=== PATIENT | female | born 1955 | race African-American/Black ===

== ENCOUNTER 2020-11-09 09:05 | Outpatient (CLI) | payer MEDICARE ==
--- NOTE | 2020-11-09 11:34 | BD ---
BONE DENSITOMETRY USING DEXA: HISTORY: Postmenopausal screening for osteoporosis. FINDINGS: Lumbar Spine: BMD (g/cm2) L1 1.075 T-Score: 0.8 Z-Score: 1.7 L2 1.064 T-Score: 0.3 Z-Score: 1.4 L3 0.996 T-Score: -0.8 Z-Score: 0.3 L4 0.999 T-Score: -0.6 Z-Score: 0.6 L1-L4 1.029 T-Score: -0.2 Z-Score: 0.9 Femoral Neck: 0.661 T-Score: -1.7 Z-Score: -0.7 Total Femur: 0.890 T-Score: -0.4 Z-Score: 0.1 The 10-year fracture risk for a major osteoporotic fracture is 3.9% and for a hip fracture is 0.4%. Impression: Osteopenia. POS: AH
--- NOTE | 2020-12-07 16:10 | MMO ---
Bilateral MAMMO Bilat Screen [facility]. CLINICAL HISTORY: Patient is 65 years old and is seen for screening. The patient has the following family history of breast cancer: aunt, malignant (generic). The patient has no personal history of cancer. VIEWS: The views performed were: bilateral craniocaudal with tomosynthesis and bilateral mediolateral oblique with tomosynthesis. FILMS COMPARED: No prior imaging studies are available for comparison. This study has been interpreted with the assistance of computer-aided detection. MAMMOGRAM FINDINGS: There are scattered fibroglandular densities. There are no suspicious masses, suspicious calcifications, or new areas of architectural distortion. IMPRESSION: THERE IS NO MAMMOGRAPHIC EVIDENCE OF MALIGNANCY. A ROUTINE FOLLOW-UP MAMMOGRAM IN 1 YEAR IS RECOMMENDED. THE RESULTS OF THIS EXAM WERE SENT TO THE PATIENT. ACR BI-RADS Category 1 - Negative MAMMOGRAPHY NOTE: 1. A negative mammogram report should not delay a biopsy if a dominant of clinically suspicious mass is present. 2. Approximately 10% to 15% of breast cancers are not detected by mammography. 3. Adenosis and dense breasts may obscure an underlying neoplasm. Reported by: ERIN SAMSON MD Electonically Signed: [id number]
== END 2020-11-09 09:06 | disposition home or self-care (01) ==
LOC: BICMAMMO 09:05
PROVIDERS: ATTEND Family Medicine
DX: Z12.31 Encounter for screening mammogram for malignant neoplasm of breast (principal); Z13.820 Encounter for screening for osteoporosis; Z78.0 Asymptomatic menopausal state; M85.859 Other specified disorders of bone density and structure, unspecified thigh; Z80.3 Family history of malignant neoplasm of breast
CPT/HCPCS: 77063; 77067; 77080